=== PATIENT | male | born 1960 ===

== ENCOUNTER 2022-06-03 21:11 | Emergency (ER) | payer OTHER ==
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
== END 2022-06-03 23:28 | disposition home or self-care (01) ==
LOC: ER 21:11
DX: M54.2 Cervicalgia (principal); M25.512 Pain in left shoulder; V49.40XA Driver injured in collision with unspecified motor vehicles in traffic accident, initial encounter
CPT/HCPCS: 70450; 72125; 99283